=== PATIENT | female | born 1970 | race Caucasian/White ===

== ENCOUNTER 2019-10-10 10:07 | Emergency (ER) | payer MEDICAID, OTHER ==
[~2019-10-10] VITALS: Ht 167.6 cm; Wt 90.9 kg
[~2019-10-10 10:07] MED LIST: CLIN-97 PO; CYCL-1 PO; PROC5TAB56 PO; SUMA25TA35 PO
[2019-10-10 10:13] VITALS: BP 131/86
[2019-10-10] MEDS ORDERED: proparacaine 0.5% ophthalmic drops 15ml RIGHTEYE ONE (10:55)
== END 2019-10-10 12:09 | disposition left against medical advice (07) ==
LOC: ER 10:07
DX: H53.141 Visual discomfort, right eye (principal); Z87.440 Personal history of urinary (tract) infections
CPT/HCPCS: 99282

== ENCOUNTER 2020-05-08 22:41 | Emergency (ER) | payer MEDICAID ==
[~2020-05-08] VITALS: Ht 167.6 cm; Wt 91.4 kg
[2020-05-08 23:04] LABS: CLARITY,URINE CLEAR (Clear); COLOR,URINE STRAW (Yellow); GLUCOSE, URINE NEGATIVE (Neg); KETONES,URINE NEGATIVE (Neg); LEUKOCYTE ESTERASE ,URINE NEGATIVE (Neg); NITRITES, URINE NEGATIVE (Neg); OCCULT BLOOD,URINE NEGATIVE (Neg); PH,URINE 5.5 (4.8-8.0); PROTEIN,URINE NEGATIVE (Neg); URINE HCG NEGATIVE (NEG); UROBILINOGEN,URINE 0.2 E.U/dL (0.2-1.0)
[2020-05-08 23:09] LABS: UA COLLECTION TYPE CLN CATCH MIDSTREAM
[2020-05-08 23:51] LABS: BASOPHILS # (AUTO) 0.1 X10'3 (0-0.2); EOSINOPHILS # (AUTO) 0.1 X10'3 (0-0.9); EOSINOPHILS % (AUTO) 1.1 % (0-6); HEMOGLOBIN 13.5 g/dl (12.0-16.0); LYMPHOCYTES # (AUTO) 1.8 X10'3 (1.1-4.8); LYMPHOCYTES % (AUTO) 20.2 % (21-51); MEAN CORPUSCULAR HEMOGLOBIN 29.2 PG (27.0-31.0); MEAN CORPUSCULAR HGB CONC 33.8 g/dL (33.0-36.5); MEAN CORPUSCULAR VOLUME 86.3 FL (78-98); MEAN PLATELET VOLUME 6.9 FL (7.4-10.4); MONOCYTES # (AUTO) 0.5 X10'3 (0-0.9); MONOCYTES % (AUTO) 5.6 % (2-12); NEUTROPHILS # (AUTO) 6.5 X10'3 (1.8-7.7); NEUTROPHILS % (AUTO) 72.1 % (42-75); PLATELET COUNT 254 X10'3 (140-440); RED BLOOD COUNT 4.64 X10'6 (4.20-5.60); RED CELL DISTRIBUTION WIDTH 13.8 % (11.5-14.5); WHITE BLOOD COUNT 9.1 X10'3 (4.5-11.0)
[2020-05-09 00:01] LABS: ALBUMIN 3.8 G/DL (3.4-5.0); ANION GAP 6 (8-16); BLOOD UREA NITROGEN 21 MG/DL (7-18); BUN/CREATININE RATIO 25.3 (6.6-38.0); CALCIUM 9.6 MG/DL (8.5-10.1); CHLORIDE 104 MMOL/L (99-107); CREATININE 0.83 MG/DL (0.40-0.90); GLUCOSE 116 MG/DL (70-104); POTASSIUM 3.9 MMOL/L (3.5-5.1); SODIUM 138 MMOL/L (135-145); TOTAL CARBON DIOXIDE 28.1 MMOL/L (24-32); eGFR 73 ML/MIN
[2020-05-09 00:24] VITALS: BP 156/75
== END 2020-05-09 00:20 | disposition home or self-care (01) ==
LOC: ER 22:42
DX: R55 Syncope and collapse (principal); R51.9 Headache, unspecified; Z79.899 Other long term (current) drug therapy; Z87.448 Personal history of other diseases of urinary system
CPT/HCPCS: 36415; 80048; 81003; 81025; 85025; 93005; 99284

== ENCOUNTER 2020-08-16 21:33 | Emergency (ER) | payer MEDICAID ==
[~2020-08-16] VITALS: Ht 167.6 cm; Wt 90.0 kg
[2020-08-16 23:50] VITALS: BP 144/89
== END 2020-08-16 23:53 | disposition home or self-care (01) ==
LOC: ER 21:34
DX: K13.70 Unspecified lesions of oral mucosa (principal); R55 Syncope and collapse; F17.200 Nicotine dependence, unspecified, uncomplicated; Z72.89 Other problems related to lifestyle; Z87.440 Personal history of urinary (tract) infections; Z79.2 Long term (current) use of antibiotics; Z79.899 Other long term (current) drug therapy
CPT/HCPCS: 99282

== ENCOUNTER 2020-11-08 11:07 | Emergency (ER) | payer MEDICAID ==
[~2020-11-08] VITALS: Ht 167.6 cm; Wt 89.5 kg
[2020-11-08] MEDS ORDERED: normal saline 1000ML IV soln IVB ONE (13:25)
[2020-11-08] MEDS ORDERED: ketorolac tromethamine 15mg/ml inj. IM ONE (13:25)
[2020-11-08] MEDS ORDERED: methylPREDNISolone sod succ 125mg/2ml vial IV ONE (13:25)
[2020-11-08 13:45] LABS: BASOPHILS % (AUTO) 0.4 % (0-1); EOSINOPHILS # (AUTO) 0.1 X10'3 (0-0.9); EOSINOPHILS % (AUTO) 1.3 % (0-6); HEMATOCRIT 43.6 % (35.0-45.0); HEMOGLOBIN 14.4 g/dl (12.0-16.0); LYMPHOCYTES # (AUTO) 2.1 X10'3 (1.1-4.8); LYMPHOCYTES % (AUTO) 23.5 % (21-51); MEAN CORPUSCULAR HEMOGLOBIN 28.6 PG (27.0-31.0); MEAN CORPUSCULAR VOLUME 86.5 FL (78-98); MEAN PLATELET VOLUME 6.9 FL (7.4-10.4); MONOCYTES # (AUTO) 0.5 X10'3 (0-0.9); NEUTROPHILS % (AUTO) 68.8 % (42-75); PLATELET COUNT 277 X10'3 (140-440); RED BLOOD COUNT 5.04 X10'6 (4.20-5.60); RED CELL DISTRIBUTION WIDTH 13.8 % (11.5-14.5); WHITE BLOOD COUNT 8.8 X10'3 (4.5-11.0)
[2020-11-08 13:56] LABS: D-DIMER 0.46 MG/L FEU (0-0.50)
[2020-11-08 14:09] LABS: ALANINE AMINOTRANSFERASE 44 U/L (12-78); ALBUMIN 3.9 G/DL (3.4-5.0); ALBUMIN/GLOBULIN RATIO 1.1 (1.1-1.5); ALKALINE PHOSPHATASE 84 IU/L (46-116); ANION GAP 5 (8-16); ASPARTATE AMINO TRANSFERASE 18 U/L (10-37); BILIRUBIN,TOTAL 0.1 MG/DL (0.1-1.0); BLOOD UREA NITROGEN 18 MG/DL (7-18); BUN/CREATININE RATIO 22.8 (6.6-38.0); CALCIUM 9.4 MG/DL (8.5-10.1); CHLORIDE 106 MMOL/L (99-107); CREATININE 0.79 MG/DL (0.40-0.90); GLUCOSE 105 MG/DL (70-104); POTASSIUM 4.2 MMOL/L (3.5-5.1); SODIUM 142 MMOL/L (135-145); TOTAL CARBON DIOXIDE 30.6 MMOL/L (24-32); TOTAL PROTEIN 7.4 G/DL (6.4-8.2); eGFR 78 ML/MIN
[2020-11-08 14:57] VITALS: BP 119/82
== END 2020-11-08 15:35 | disposition home or self-care (01) ==
LOC: ER 11:07
DX: R51.9 Headache, unspecified (principal); R20.0 Anesthesia of skin; H53.8 Other visual disturbances; Z72.89 Other problems related to lifestyle; Z98.890 Other specified postprocedural states; Z79.899 Other long term (current) drug therapy
CPT/HCPCS: 36415; 70450; 80053; 85025; 85379; 93005; 96372; 96374; 99285; J1885; J2930; J7030; 96375

== ENCOUNTER 2020-11-24 11:31 | Emergency (ER) | payer MEDICAID ==
[~2020-11-24] VITALS: Ht 167.6 cm; Wt 86.0 kg
[2020-11-24 12:22] LABS: BASOPHILS % (AUTO) 0.5 % (0-1); EOSINOPHILS # (AUTO) 0.1 X10'3 (0-0.9); EOSINOPHILS % (AUTO) 1.1 % (0-6); HEMATOCRIT 42.3 % (35.0-45.0); HEMOGLOBIN 14.4 g/dl (12.0-16.0); LYMPHOCYTES # (AUTO) 1.5 X10'3 (1.1-4.8); LYMPHOCYTES % (AUTO) 17.8 % (21-51); MEAN CORPUSCULAR HEMOGLOBIN 29.2 PG (27.0-31.0); MEAN CORPUSCULAR VOLUME 85.7 FL (78-98); MEAN PLATELET VOLUME 6.8 FL (7.4-10.4); MONOCYTES # (AUTO) 0.6 X10'3 (0-0.9); MONOCYTES % (AUTO) 7.2 % (2-12); NEUTROPHILS # (AUTO) 6.3 X10'3 (1.8-7.7); NEUTROPHILS % (AUTO) 73.4 % (42-75); PLATELET COUNT 267 X10'3 (140-440); RED BLOOD COUNT 4.94 X10'6 (4.20-5.60); RED CELL DISTRIBUTION WIDTH 13.5 % (11.5-14.5); WHITE BLOOD COUNT 8.5 X10'3 (4.5-11.0)
[2020-11-24 12:36] LABS: ALANINE AMINOTRANSFERASE 36 U/L (12-78); ALBUMIN 3.6 G/DL (3.4-5.0); ALBUMIN/GLOBULIN RATIO 0.9 (1.1-1.5); ALKALINE PHOSPHATASE 106 IU/L (46-116); ANION GAP 8 (8-16); ASPARTATE AMINO TRANSFERASE 17 U/L (10-37); BILIRUBIN,TOTAL 0.2 MG/DL (0.1-1.0); BLOOD UREA NITROGEN 15 MG/DL (7-18); CALCIUM 9.1 MG/DL (8.5-10.1); CHLORIDE 105 MMOL/L (99-107); CREATININE 0.75 MG/DL (0.40-0.90); GLUCOSE 109 MG/DL (70-104); LIPASE 78 U/L (73-393); POTASSIUM 3.9 MMOL/L (3.5-5.1); SODIUM 141 MMOL/L (135-145); TOTAL CARBON DIOXIDE 28.1 MMOL/L (24-32); TOTAL PROTEIN 7.5 G/DL (6.4-8.2); eGFR 82 ML/MIN
[2020-11-24] MEDS ORDERED: ketorolac tromethamine 15mg/ml inj. IV ONE (18:20)
[2020-11-24] MEDS ORDERED: ondansetron/PF 4mg/2ml inj IV ONE (18:20)
[2020-11-24] MEDS ORDERED: normal saline 1000ml 1,000 ML IV ONE (18:20)
[2020-11-24] MEDS ORDERED: iohexol 350MG/ML 100ml bottle IV ONE (18:21)
[2020-11-24 18:34] LABS: CLARITY,URINE SLIGHTLY CLOUDY (Clear); COLOR,URINE YELLOW (Yellow); GLUCOSE, URINE NEGATIVE (Neg); KETONES,URINE NEGATIVE (Neg); LEUKOCYTE ESTERASE ,URINE NEGATIVE (Neg); NITRITES, URINE NEGATIVE (Neg); OCCULT BLOOD,URINE TRACE-INTACT (Neg); PH,URINE 5.5 (4.8-8.0); PROTEIN,URINE NEGATIVE (Neg); UROBILINOGEN,URINE 0.2 E.U/dL (0.2-1.0)
[2020-11-24] MEDS ORDERED: iohexol 300mg/ml 100ml inj. ONE (18:34)
[2020-11-24 18:40] LABS: URINE HCG NEGATIVE (NEG)
[2020-11-24 18:42] LABS: BACTERIA,URINE 2+ /HPF (Neg); MUCUS STRANDS MANY /LPF (Neg); RBC,URINE 0-2 /HPF (0-2); RENAL CELLS, URINE FEW /HPF; SQUAMOUS EPITHELIAL CELL,UR MANY /LPF (FEW); TRANSITIONAL EPI CELLS,URINE FEW /HPF; UA COLLECTION TYPE CLN CATCH MIDSTREAM; WBC,URINE 0-4 /HPF (0-4)
[2020-11-24] MEDS ORDERED: CIPR-259 PO (20:14)
[2020-11-24] MEDS ORDERED: ONDA4TAB6 PO (20:14)
[2020-11-24] MEDS ORDERED: METR500T PO (20:14)
[2020-11-24] MEDS ORDERED: HYDR-3964 PO (20:14)
[2020-11-24 20:56] VITALS: BP 106/64
[2020-11-24 22:17] LABS: OCCULT BLOOD STOOL POSITIVE (Neg)
== END 2020-11-24 20:58 | disposition home or self-care (01) ==
LOC: ER 11:31
DX: K57.32 Diverticulitis of large intestine without perforation or abscess without bleeding (principal); Z87.448 Personal history of other diseases of urinary system; Z79.899 Other long term (current) drug therapy
CPT/HCPCS: 36415; 74177; 80053; 81001; 81025; 82272; 83605; 83690; 85025; 96361; 96374; 96375; 99285; J1885; J2405; J7030; Q9967

== ENCOUNTER 2020-11-27 20:53 | Emergency (ER) | payer MEDICAID ==
[~2020-11-27] VITALS: Ht 167.6 cm; Wt 87.3 kg
[~2020-11-27 20:53] MED LIST changes: +CIPR-259 PO; -CLIN-97 PO; -CYCL-1 PO; +HYDR-3964 PO; +METR500T PO; +ONDA4TAB6 PO; -PROC5TAB56 PO; -SUMA25TA35 PO
[2020-11-27] MEDS ORDERED: metoclopramide 5 mg/ml inj IV ONE (22:50)
[2020-11-27] MEDS ORDERED: magnesium citrate 296ml oral solution PO ONE (22:50)
[2020-11-27] MEDS ORDERED: bisacodyl 10mg suppository rectal RC ONE (22:50)
[2020-11-27] MEDS ORDERED: normal saline 1000ML IV soln IVB ONE (22:50)
[2020-11-27 23:16] VITALS: BP 104/69
== END 2020-11-28 01:02 | disposition home or self-care (01) ==
LOC: ER 20:54
DX: K59.00 Constipation, unspecified (principal); E86.0 Dehydration; K57.92 Diverticulitis of intestine, part unspecified, without perforation or abscess without bleeding; F17.200 Nicotine dependence, unspecified, uncomplicated; Z87.440 Personal history of urinary (tract) infections; Z72.89 Other problems related to lifestyle; Z79.2 Long term (current) use of antibiotics; Z98.890 Other specified postprocedural states; Z79.899 Other long term (current) drug therapy
CPT/HCPCS: 74018; 96361; 96374; 99284; J2765; J7030

== ENCOUNTER 2021-02-24 00:34 | Emergency (ER) | payer MEDICAID ==
[~2021-02-24 00:34] MED LIST changes: -CIPR-259 PO; -HYDR-3964 PO; -METR500T PO
== END 2021-02-24 01:30 | disposition left against medical advice (07) ==
LOC: ER 00:34
DX: N64.4 Mastodynia (principal); Z53.21 Procedure and treatment not carried out due to patient leaving prior to being seen by health care provider

== ENCOUNTER 2021-12-28 08:18 | Emergency (ER) | payer MEDICAID ==
[~2021-12-28] VITALS: Ht 167.6 cm; Wt 100.0 kg
[2021-12-28 08:24] VITALS: BP 125/95
--- NOTE | 2021-12-28 08:59 | NUR ---
SOON TRIAGE WAS COMPLETED, PT WENT TO REGISTRATION WINDOW AND STATED THAT SHE ISGOING TO LEAVE HER SYMPTOMS "AREN'T BAD", AND THAT SHE WOULD RETURN SHOULDER THEY WORSEN.
== END 2021-12-28 09:00 | disposition left against medical advice (07) ==
LOC: ER 08:18
DX: R07.89 Other chest pain (principal); Z53.21 Procedure and treatment not carried out due to patient leaving prior to being seen by health care provider

== ENCOUNTER 2022-01-09 21:31 | Emergency (ER) | payer MEDICAID ==
[~2022-01-09] VITALS: Ht 167.6 cm; Wt 100.0 kg
[2022-01-09 22:52] LABS: CLARITY,URINE CLEAR (Clear); GLUCOSE, URINE NEGATIVE (Neg); KETONES,URINE TRACE mg/dl (Neg); LEUKOCYTE ESTERASE ,URINE NEGATIVE (Neg); NITRITES, URINE NEGATIVE (Neg); OCCULT BLOOD,URINE NEGATIVE (Neg); PROTEIN,URINE NEGATIVE (Neg); UROBILINOGEN,URINE 0.2 E.U/dL (0.2-1.0)
[2022-01-09 22:55] LABS: COLOR,URINE AMBER (Yellow); UA COLLECTION TYPE CLN CATCH MIDSTREAM
[2022-01-10] MEDS ORDERED: normal saline 1000ML IV soln IVB ONE (00:55)
[2022-01-10 01:37] LABS: BASOPHILS % (AUTO) 0.3 % (0-1); EOSINOPHILS # (AUTO) 0.1 X10'3 (0-0.9); HEMATOCRIT 40.2 % (35.0-45.0); HEMOGLOBIN 13.5 g/dl (12.0-16.0); LYMPHOCYTES % (AUTO) 23.8 % (21-51); MEAN CORPUSCULAR HEMOGLOBIN 27.9 PG (27.0-31.0); MEAN CORPUSCULAR HGB CONC 33.5 g/dL (33.0-36.5); MEAN PLATELET VOLUME 6.8 FL (7.4-10.4); MONOCYTES # (AUTO) 0.5 X10'3 (0-0.9); MONOCYTES % (AUTO) 6.4 % (2-12); NEUTROPHILS # (AUTO) 5.8 X10'3 (1.8-7.7); NEUTROPHILS % (AUTO) 68.5 % (42-75); PLATELET COUNT 247 X10'3 (140-440); RED BLOOD COUNT 4.84 X10'6 (4.20-5.60); RED CELL DISTRIBUTION WIDTH 13.4 % (11.5-14.5); WHITE BLOOD COUNT 8.4 X10'3 (4.5-11.0)
[2022-01-10 01:53] LABS: ALBUMIN 3.8 G/DL (3.4-5.0); ANION GAP 8 (8-16); BILIRUBIN,TOTAL 0.2 MG/DL (0.1-1.0); BLOOD UREA NITROGEN 23 MG/DL (7-18); CALCIUM 9.4 MG/DL (8.5-10.1); CHLORIDE 107 MMOL/L (99-107); CREATININE 0.82 MG/DL (0.40-0.90); GLUCOSE 118 MG/DL (70-104); POTASSIUM 4.1 MMOL/L (3.5-5.1); SODIUM 142 MMOL/L (135-145); TOTAL CARBON DIOXIDE 27.1 MMOL/L (24-32); TOTAL PROTEIN 7.3 G/DL (6.4-8.2); eGFR 74 ML/MIN
[2022-01-10 01:54] LABS: ALANINE AMINOTRANSFERASE 89 U/L (12-78); ALBUMIN/GLOBULIN RATIO 1.1 (1.1-1.5); ALKALINE PHOSPHATASE 88 IU/L (46-116); ASPARTATE AMINO TRANSFERASE 29 U/L (10-37); LIPASE 82 U/L (73-393)
[2022-01-10 03:18] VITALS: BP 114/72
[2022-01-10] MEDS ORDERED: PANT-47 PO (03:43)
== END 2022-01-10 03:20 | disposition home or self-care (01) ==
LOC: ER 21:31
DX: R10.11 Right upper quadrant pain (principal); R11.10 Vomiting, unspecified; R42 Dizziness and giddiness; E11.9 Type 2 diabetes mellitus without complications; Z79.899 Other long term (current) drug therapy
CPT/HCPCS: 36415; 80053; 81003; 83690; 85025; 96360; 96361; 99283; J7030

== ENCOUNTER 2022-04-29 21:56 | Emergency (ER) | payer MEDICAID ==
[~2022-04-29] VITALS: Ht 167.6 cm; Wt 98.0 kg
[~2022-04-29 21:56] MED LIST changes: +PANT-47 PO
[2022-04-29 22:34] VITALS: BP 125/94
[2022-04-29 23:00] LABS: BASOPHILS % (AUTO) 0.5 % (0-1); EOSINOPHILS # (AUTO) 0.1 X10'3 (0-0.9); EOSINOPHILS % (AUTO) 0.9 % (0-6); HEMATOCRIT 40.8 % (35.0-45.0); HEMOGLOBIN 13.4 g/dl (12.0-16.0); LYMPHOCYTES % (AUTO) 31.7 % (21-51); MEAN CORPUSCULAR HEMOGLOBIN 27.6 PG (27.0-31.0); MEAN CORPUSCULAR HGB CONC 32.9 g/dL (33.0-36.5); MEAN PLATELET VOLUME 6.7 FL (7.4-10.4); MONOCYTES # (AUTO) 0.7 X10'3 (0-0.9); MONOCYTES % (AUTO) 6.9 % (2-12); NEUTROPHILS # (AUTO) 5.7 X10'3 (1.8-7.7); PLATELET COUNT 296 X10'3 (140-440); RED BLOOD COUNT 4.85 X10'6 (4.20-5.60); RED CELL DISTRIBUTION WIDTH 13.8 % (11.5-14.5); WHITE BLOOD COUNT 9.6 X10'3 (4.5-11.0)
[2022-04-29 23:10] LABS: ALANINE AMINOTRANSFERASE 70 U/L (12-78); ALBUMIN/GLOBULIN RATIO 1.2 (1.1-1.5); ALKALINE PHOSPHATASE 93 IU/L (46-116); ANION GAP 8 (8-16); ASPARTATE AMINO TRANSFERASE 25 U/L (10-37); BILIRUBIN,TOTAL 0.2 MG/DL (0.1-1.0); BLOOD UREA NITROGEN 22 MG/DL (7-18); CALCIUM 9.4 MG/DL (8.5-10.1); CHLORIDE 103 MMOL/L (99-107); CREATININE 0.88 MG/DL (0.40-0.90); GLUCOSE 109 MG/DL (70-104); POTASSIUM 3.7 MMOL/L (3.5-5.1); SODIUM 139 MMOL/L (135-145); TOTAL CARBON DIOXIDE 28.5 MMOL/L (24-32); TOTAL PROTEIN 7.3 G/DL (6.4-8.2); eGFR 68 ML/MIN
--- NOTE | 2022-04-30 02:04 | NUR ---
BLOOD SENT TO LAB
== END 2022-04-30 03:04 | disposition home or self-care (01) ==
LOC: ER 21:57
DX: R07.89 Other chest pain (principal); R06.02 Shortness of breath; E11.9 Type 2 diabetes mellitus without complications; Z87.440 Personal history of urinary (tract) infections; Z79.899 Other long term (current) drug therapy
CPT/HCPCS: 36415; 71045; 80053; 84484; 85025; 93005; 99285

== ENCOUNTER 2023-01-13 23:44 | Emergency (ER) | payer MEDICAID ==
[~2023-01-13] VITALS: Ht 167.6 cm; Wt 81.8 kg
[2023-01-13 23:53] VITALS: BP 140/96
== END 2023-01-14 01:20 | disposition left against medical advice (07) ==
LOC: ER 23:45
DX: I10 Essential (primary) hypertension (principal); Z53.21 Procedure and treatment not carried out due to patient leaving prior to being seen by health care provider
CPT/HCPCS: 80053; 83690; 99281

== ENCOUNTER 2023-07-28 08:58 | Emergency (ER) | payer MEDICAID ==
[~2023-07-28] VITALS: Ht 167.6 cm; Wt 83.8 kg
[2023-07-28 09:28] LABS: URINE HCG NEGATIVE (NEG)
[2023-07-28 09:29] LABS: BILIRUBIN,URINE NEGATIVE (Neg); CLARITY,URINE CLOUDY (Clear); COLOR,URINE YELLOW (Yellow); GLUCOSE, URINE NEGATIVE (Neg); KETONES,URINE NEGATIVE (Neg); LEUKOCYTE ESTERASE ,URINE MODERATE (Neg); NITRITES, URINE NEGATIVE (Neg); OCCULT BLOOD,URINE LARGE (Neg); PROTEIN,URINE TRACE mg/dl (Neg); UROBILINOGEN,URINE 0.2 E.U/dL (0.2-1.0)
[2023-07-28 09:37] LABS: UA COLLECTION TYPE CLN CATCH MIDSTREAM
[2023-07-28 09:39] LABS: BACTERIA,URINE 2+ /HPF (Neg); RBC,URINE 50-100 /HPF (0-2); SQUAMOUS EPITHELIAL CELL,UR FEW /LPF (FEW); WBC,URINE TNTC /HPF (0-4)
[2023-07-28 09:41] LABS: BASOPHILS % (AUTO) 0.3 % (0-1); EOSINOPHILS # (AUTO) 0.2 X10'3 (0-0.9); EOSINOPHILS % (AUTO) 1.4 % (0-6); HEMATOCRIT 41.7 % (35.0-45.0); HEMOGLOBIN 13.6 g/dl (12.0-16.0); LYMPHOCYTES # (AUTO) 2.5 X10'3 (1.1-4.8); LYMPHOCYTES % (AUTO) 20.1 % (21-51); MEAN CORPUSCULAR HEMOGLOBIN 28.2 PG (27.0-31.0); MEAN CORPUSCULAR HGB CONC 32.6 g/dL (33.0-36.5); MEAN CORPUSCULAR VOLUME 86.3 FL (78-98); MEAN PLATELET VOLUME 6.9 FL (7.4-10.4); MONOCYTES # (AUTO) 0.9 X10'3 (0-0.9); MONOCYTES % (AUTO) 7.6 % (2-12); NEUTROPHILS # (AUTO) 8.7 X10'3 (1.8-7.7); NEUTROPHILS % (AUTO) 70.6 % (42-75); PLATELET COUNT 289 X10'3 (140-440); RED BLOOD COUNT 4.83 X10'6 (4.20-5.60); RED CELL DISTRIBUTION WIDTH 13.9 % (11.5-14.5); WHITE BLOOD COUNT 12.2 X10'3 (4.5-11.0)
[2023-07-28 09:54] LABS: ALANINE AMINOTRANSFERASE 29 U/L (12-78); ALBUMIN 3.6 G/DL (3.4-5.0); ALBUMIN/GLOBULIN RATIO 0.9 (1.1-1.5); ALKALINE PHOSPHATASE 96 IU/L (46-116); ANION GAP 6 (8-16); ASPARTATE AMINO TRANSFERASE 15 U/L (10-37); BILIRUBIN,TOTAL 0.2 MG/DL (0.1-1.0); BLOOD UREA NITROGEN 19 MG/DL (7-18); BUN/CREATININE RATIO 27.1 (10.0-20.0); CALCIUM 9.1 MG/DL (8.5-10.1); CHLORIDE 102 MMOL/L (99-107); GLUCOSE 91 MG/DL (70-104); LIPASE 31 U/L (16-77); POTASSIUM 3.8 MMOL/L (3.5-5.1); SODIUM 139 MMOL/L (135-145); TOTAL CARBON DIOXIDE 31.5 MMOL/L (24-32); TOTAL PROTEIN 7.6 G/DL (6.4-8.2); eCRCL 89 ML/MIN; eGFR 88 ML/MIN
[2023-07-28] MEDS ORDERED: ketorolac trometh inj. 60 MG/2 ML VIAL IM ONE (10:10)
[2023-07-28] MEDS ORDERED: CefTRIAXone 1000mg IM Kit (w/lidocaine diluent) IM ONE (11:35)
[2023-07-28] MEDS ORDERED: PHEN-716 PO (11:36)
[2023-07-28 12:07] VITALS: BP 120/82; PULSE 89; RESP 18; TEMP 98.1; O2SAT 98
== END 2023-07-28 12:09 | disposition home or self-care (01) ==
LOC: ER 08:59
DX: N39.0 Urinary tract infection, site not specified (principal); E11.9 Type 2 diabetes mellitus without complications; F17.200 Nicotine dependence, unspecified, uncomplicated; Z79.899 Other long term (current) drug therapy
CPT/HCPCS: 36415; 74176; 80053; 81001; 81025; 83690; 85025; 87088; 96372; 99285; J0696; J1885

== ENCOUNTER 2023-11-08 22:33 | Emergency (ER) | payer MEDICAID ==
[~2023-11-08] VITALS: Ht 167.6 cm; Wt 83.8 kg
[~2023-11-08 22:33] MED LIST changes: +PHEN-716 PO
[2023-11-08 23:12] LABS: BILIRUBIN,URINE NEGATIVE (Neg); CLARITY,URINE CLEAR (Clear); COLOR,URINE STRAW (Yellow); GLUCOSE, URINE NEGATIVE (Neg); KETONES,URINE NEGATIVE (Neg); LEUKOCYTE ESTERASE ,URINE NEGATIVE (Neg); NITRITES, URINE NEGATIVE (Neg); OCCULT BLOOD,URINE NEGATIVE (Neg); PROTEIN,URINE NEGATIVE (Neg); UROBILINOGEN,URINE 0.2 E.U/dL (0.2-1.0)
[2023-11-08 23:15] LABS: URINE HCG NEGATIVE (NEG)
[2023-11-08 23:23] LABS: UA COLLECTION TYPE CLN CATCH MIDSTREAM
[2023-11-08 23:42] LABS: BASOPHILS % (AUTO) 0.5 % (0-1); EOSINOPHILS # (AUTO) 0.1 X10'3 (0-0.9); EOSINOPHILS % (AUTO) 1.1 % (0-6); HEMATOCRIT 40.9 % (35.0-45.0); HEMOGLOBIN 13.7 g/dl (12.0-16.0); LYMPHOCYTES # (AUTO) 2.9 X10'3 (1.1-4.8); LYMPHOCYTES % (AUTO) 36.5 % (21-51); MEAN CORPUSCULAR HEMOGLOBIN 28.7 PG (27.0-31.0); MEAN CORPUSCULAR HGB CONC 33.5 g/dL (33.0-36.5); MEAN CORPUSCULAR VOLUME 85.7 FL (78-98); MEAN PLATELET VOLUME 6.5 FL (7.4-10.4); MONOCYTES # (AUTO) 0.5 X10'3 (0-0.9); MONOCYTES % (AUTO) 6.6 % (2-12); NEUTROPHILS # (AUTO) 4.4 X10'3 (1.8-7.7); NEUTROPHILS % (AUTO) 55.3 % (42-75); PLATELET COUNT 290 X10'3 (140-440); RED BLOOD COUNT 4.77 X10'6 (4.20-5.60); RED CELL DISTRIBUTION WIDTH 14.2 % (11.5-14.5); WHITE BLOOD COUNT 7.9 X10'3 (4.5-11.0)
[2023-11-08 23:57] LABS: ALANINE AMINOTRANSFERASE 29 U/L (12-78); ALBUMIN 4.2 G/DL (3.4-5.0); ALBUMIN/GLOBULIN RATIO 1.1 (1.1-1.5); ALKALINE PHOSPHATASE 79 IU/L (46-116); ANION GAP 8 (8-16); ASPARTATE AMINO TRANSFERASE 16 U/L (10-37); BILIRUBIN,TOTAL 0.3 MG/DL (0.1-1.0); BLOOD UREA NITROGEN 16 MG/DL (7-18); BUN/CREATININE RATIO 19.8 (10.0-20.0); CALCIUM 9.4 MG/DL (8.5-10.1); CHLORIDE 105 MMOL/L (99-107); CREATININE 0.81 MG/DL (0.40-0.90); GLUCOSE 113 MG/DL (70-104); LIPASE 23 U/L (16-77); POTASSIUM 3.8 MMOL/L (3.5-5.1); SODIUM 139 MMOL/L (135-145); TOTAL CARBON DIOXIDE 25.8 MMOL/L (24-32); TOTAL PROTEIN 7.9 G/DL (6.4-8.2); eCRCL 77 ML/MIN; eGFR 75 ML/MIN
[2023-11-09] MEDS ORDERED: BISA-78 PO (01:05)
[2023-11-09] MEDS ORDERED: POLY119P2 PO (01:05)
[2023-11-09 01:16] VITALS: BP 116/78; PULSE 59; RESP 18; TEMP 97.9; O2SAT 98
== END 2023-11-09 01:18 | disposition home or self-care (01) ==
LOC: ER 22:33
DX: R10.9 Unspecified abdominal pain (principal); K21.9 Gastro-esophageal reflux disease without esophagitis; E11.9 Type 2 diabetes mellitus without complications
CPT/HCPCS: 36415; 80053; 81003; 81025; 83690; 85025; 99283

== ENCOUNTER 2024-01-24 11:02 | Emergency (ER) | payer MEDICAID, OTHER ==
[~2024-01-24] VITALS: Ht 167.6 cm; Wt 84.6 kg
[~2024-01-24 11:02] MED LIST changes: +BISA-78 PO; +POLY119P2 PO
[2024-01-24 11:30] VITALS: TEMP 98.7
[2024-01-24 11:47] LABS: BASOPHILS % (AUTO) 0.2 % (0-1); EOSINOPHILS # (AUTO) 0.1 X10'3 (0-0.9); EOSINOPHILS % (AUTO) 1.1 % (0-6); HEMATOCRIT 44.9 % (35.0-45.0); HEMOGLOBIN 14.8 g/dl (12.0-16.0); LYMPHOCYTES # (AUTO) 2.1 X10'3 (1.1-4.8); LYMPHOCYTES % (AUTO) 25.1 % (21-51); MEAN CORPUSCULAR HEMOGLOBIN 28.3 PG (27.0-31.0); MEAN CORPUSCULAR VOLUME 85.7 FL (78-98); MONOCYTES # (AUTO) 0.6 X10'3 (0-0.9); NEUTROPHILS # (AUTO) 5.6 X10'3 (1.8-7.7); NEUTROPHILS % (AUTO) 66.6 % (42-75); PLATELET COUNT 354 X10'3 (140-440); RED BLOOD COUNT 5.24 X10'6 (4.20-5.60); RED CELL DISTRIBUTION WIDTH 14.1 % (11.5-14.5); WHITE BLOOD COUNT 8.4 X10'3 (4.5-11.0)
[2024-01-24 11:55] LABS: ALANINE AMINOTRANSFERASE 36 U/L (12-78); ALBUMIN 4.1 G/DL (3.4-5.0); ALBUMIN/GLOBULIN RATIO 1.1 (1.1-1.5); ALKALINE PHOSPHATASE 86 IU/L (46-116); ANION GAP 13 (8-16); ASPARTATE AMINO TRANSFERASE 12 U/L (10-37); BILIRUBIN,TOTAL 0.4 MG/DL (0.1-1.0); BLOOD UREA NITROGEN 20 MG/DL (7-18); BUN/CREATININE RATIO 23.8 (10.0-20.0); CALCIUM 9.7 MG/DL (8.5-10.1); CHLORIDE 105 MMOL/L (99-107); CREATININE 0.84 MG/DL (0.40-0.90); GLUCOSE 138 MG/DL (70-104); LIPASE 35 U/L (16-77); POTASSIUM 3.8 MMOL/L (3.5-5.1); SODIUM 141 MMOL/L (135-145); TOTAL CARBON DIOXIDE 22.6 MMOL/L (24-32); TOTAL PROTEIN 7.9 G/DL (6.4-8.2); eCRCL 74 ML/MIN; eGFR 71 ML/MIN
[2024-01-24 12:13] LABS: URINE HCG NEGATIVE (NEG)
[2024-01-24 12:26] LABS: BILIRUBIN,URINE NEGATIVE (Neg); CLARITY,URINE CLEAR (Clear); COLOR,URINE YELLOW (Yellow); GLUCOSE, URINE NEGATIVE (Neg); KETONES,URINE NEGATIVE (Neg); LEUKOCYTE ESTERASE ,URINE NEGATIVE (Neg); NITRITES, URINE NEGATIVE (Neg); OCCULT BLOOD,URINE NEGATIVE (Neg); PROTEIN,URINE NEGATIVE (Neg); UROBILINOGEN,URINE 0.2 E.U/dL (0.2-1.0)
[2024-01-24 12:33] LABS: UA COLLECTION TYPE CLN CATCH MIDSTREAM
[2024-01-24] MEDS: normal saline 1000ML IV soln IVB ONE (13:32)
[2024-01-24 13:33] LABS: ETHANOL < 10 MG/DL (<10)
[2024-01-24] MEDS: ketorolac trometh. 30mg/ml inj. IV ONE (13:40)
[2024-01-24 15:03] VITALS: PULSE 56; RESP 18; O2SAT 100
[2024-01-24 15:59] VITALS: BP 114/71
== END 2024-01-24 16:01 | disposition home or self-care (01) ==
LOC: ER 11:02
DX: R10.11 Right upper quadrant pain (principal); M54.9 Dorsalgia, unspecified; R51.9 Headache, unspecified; R11.0 Nausea; K21.9 Gastro-esophageal reflux disease without esophagitis; E11.9 Type 2 diabetes mellitus without complications; Z79.899 Other long term (current) drug therapy
CPT/HCPCS: 36415; 76700; 80053; 80320; 81003; 81025; 83690; 85025; 93005; 96374; 99285; J1885; J7030

== ENCOUNTER 2024-02-24 14:43 | Emergency (ER) | payer OTHER ==
[~2024-02-24] VITALS: Ht 167.6 cm; Wt 86.6 kg
[2024-02-24 15:43] LABS: BASOPHILS % (AUTO) 0.5 % (0-1); EOSINOPHILS # (AUTO) 0.1 X10'3 (0-0.9); HEMATOCRIT 42.4 % (35.0-45.0); HEMOGLOBIN 13.8 g/dl (12.0-16.0); LYMPHOCYTES # (AUTO) 2.1 X10'3 (1.1-4.8); LYMPHOCYTES % (AUTO) 29.1 % (21-51); MEAN CORPUSCULAR HEMOGLOBIN 27.9 PG (27.0-31.0); MEAN CORPUSCULAR HGB CONC 32.6 g/dL (33.0-36.5); MEAN CORPUSCULAR VOLUME 85.5 FL (78-98); MEAN PLATELET VOLUME 6.9 FL (7.4-10.4); MONOCYTES # (AUTO) 0.5 X10'3 (0-0.9); MONOCYTES % (AUTO) 7.3 % (2-12); NEUTROPHILS # (AUTO) 4.5 X10'3 (1.8-7.7); NEUTROPHILS % (AUTO) 62.1 % (42-75); PLATELET COUNT 297 X10'3 (140-440); RED BLOOD COUNT 4.96 X10'6 (4.20-5.60); RED CELL DISTRIBUTION WIDTH 14.3 % (11.5-14.5); WHITE BLOOD COUNT 7.3 X10'3 (4.5-11.0)
[2024-02-24 15:44] VITALS: TEMP 98.6
[2024-02-24 15:56] LABS: ALBUMIN 4.5 G/DL (3.4-5.0); ANION GAP 11 (8-16); BLOOD UREA NITROGEN 14 MG/DL (7-18); BUN/CREATININE RATIO 17.7 (10.0-20.0); CALCIUM 9.6 MG/DL (8.5-10.1); CHLORIDE 102 MMOL/L (99-107); CREATININE 0.79 MG/DL (0.40-0.90); GLUCOSE 122 MG/DL (70-104); POTASSIUM 3.9 MMOL/L (3.5-5.1); PRO BRAIN NATRIURETIC PEPTIDE < 30 PG/ML (0-125); SODIUM 140 MMOL/L (135-145); TOTAL CARBON DIOXIDE 27.4 MMOL/L (24-32); eCRCL 79 ML/MIN; eGFR 77 ML/MIN
[2024-02-24] MEDS: dexamethasone 4mg tablet PO ONE (17:59)
[2024-02-24 18:04] VITALS: BP 122/83; PULSE 56; RESP 16; O2SAT 97
== END 2024-02-24 18:06 | disposition home or self-care (01) ==
LOC: ER 14:43
DX: J02.8 Acute pharyngitis due to other specified organisms (principal); K21.9 Gastro-esophageal reflux disease without esophagitis; E11.9 Type 2 diabetes mellitus without complications; Z79.899 Other long term (current) drug therapy
CPT/HCPCS: 36415; 71045; 80048; 83880; 84484; 85025; 93005; 99285

== ENCOUNTER 2024-05-02 19:03 | Emergency (ER) | payer OTHER ==
[~2024-05-02] VITALS: Ht 167.6 cm; Wt 89.8 kg
[2024-05-02 19:20] VITALS: TEMP 97.3
[2024-05-02 20:32] LABS: BASOPHILS % (AUTO) 0.6 % (0-1); EOSINOPHILS # (AUTO) 0.1 X10'3 (0-0.9); EOSINOPHILS % (AUTO) 1.5 % (0-6); HEMATOCRIT 38.6 % (35.0-45.0); HEMOGLOBIN 12.6 g/dl (12.0-16.0); LYMPHOCYTES # (AUTO) 2.8 X10'3 (1.1-4.8); LYMPHOCYTES % (AUTO) 33.7 % (21-51); MEAN CORPUSCULAR HGB CONC 32.7 g/dL (33.0-36.5); MEAN CORPUSCULAR VOLUME 85.6 FL (78-98); MEAN PLATELET VOLUME 6.6 FL (7.4-10.4); MONOCYTES # (AUTO) 0.6 X10'3 (0-0.9); MONOCYTES % (AUTO) 6.8 % (2-12); NEUTROPHILS # (AUTO) 4.7 X10'3 (1.8-7.7); NEUTROPHILS % (AUTO) 57.4 % (42-75); PLATELET COUNT 264 X10'3 (140-440); RED BLOOD COUNT 4.51 X10'6 (4.20-5.60); RED CELL DISTRIBUTION WIDTH 13.8 % (11.5-14.5); WHITE BLOOD COUNT 8.3 X10'3 (4.5-11.0)
[2024-05-02 20:45] LABS: ALANINE AMINOTRANSFERASE 31 U/L (12-78); ALBUMIN/GLOBULIN RATIO 1.4 (1.1-1.5); ALKALINE PHOSPHATASE 71 IU/L (46-116); ANION GAP 9 (8-16); ASPARTATE AMINO TRANSFERASE 19 U/L (10-37); BILIRUBIN,TOTAL 0.2 MG/DL (0.1-1.0); BLOOD UREA NITROGEN 20 MG/DL (7-18); BUN/CREATININE RATIO 19.4 (10.0-20.0); CALCIUM 8.7 MG/DL (8.5-10.1); CHLORIDE 104 MMOL/L (99-107); CREATININE 1.03 MG/DL (0.40-0.90); GLUCOSE 108 MG/DL (70-104); POTASSIUM 3.7 MMOL/L (3.5-5.1); SODIUM 139 MMOL/L (135-145); TOTAL CARBON DIOXIDE 26.5 MMOL/L (24-32); TOTAL PROTEIN 6.8 G/DL (6.4-8.2); eCRCL 60 ML/MIN; eGFR 56 ML/MIN
[2024-05-02 20:53] LABS: PRO BRAIN NATRIURETIC PEPTIDE < 30 PG/ML (0-125)
[2024-05-02 21:56] LABS: BILIRUBIN,URINE NEGATIVE (Neg); CLARITY,URINE CLEAR (Clear); COLOR,URINE YELLOW (Yellow); GLUCOSE, URINE NEGATIVE (Neg); KETONES,URINE NEGATIVE (Neg); LEUKOCYTE ESTERASE ,URINE NEGATIVE (Neg); NITRITES, URINE NEGATIVE (Neg); OCCULT BLOOD,URINE NEGATIVE (Neg); PROTEIN,URINE NEGATIVE (Neg); UROBILINOGEN,URINE 0.2 E.U/dL (0.2-1.0)
[2024-05-02 22:04] LABS: UA COLLECTION TYPE CLN CATCH MIDSTREAM
[2024-05-02 22:11] LABS: URINE AMPHETAMINE SCREEN NEGATIVE (Neg); URINE BARBITUATE SCREEN NEGATIVE (Neg); URINE BENZODIAZEPINES SCREEN NEGATIVE (Neg); URINE CANNABINOID SCREEN NEGATIVE (Neg); URINE COCAINE SCREEN NEGATIVE (Neg); URINE METHADONE SCREEN NEGATIVE (Neg); URINE OPIATE SCREEN NEGATIVE (Neg); URINE PHENCYCLIDINE SCREEN NEGATIVE (Neg)
[2024-05-02 22:50] VITALS: BP 110/75; PULSE 68; RESP 12; O2SAT 96
== END 2024-05-02 22:51 | disposition home or self-care (01) ==
LOC: ER 19:04
DX: R07.89 Other chest pain (principal); M25.512 Pain in left shoulder; E11.9 Type 2 diabetes mellitus without complications; K21.9 Gastro-esophageal reflux disease without esophagitis; Z79.899 Other long term (current) drug therapy; Z87.440 Personal history of urinary (tract) infections
CPT/HCPCS: 36415; 71045; 80053; 80305; 81003; 83880; 84484; 85025; 93005; 99285

== ENCOUNTER 2024-09-15 17:26 | Emergency (ER) | payer MEDICAID ==
[~2024-09-15] VITALS: Ht 167.6 cm; Wt 90.3 kg
[2024-09-15 18:03] LABS: BASOPHILS % (AUTO) 0.5 % (0-1); EOSINOPHILS # (AUTO) 0.1 X10'3 (0-0.9); EOSINOPHILS % (AUTO) 1.6 % (0-6); HEMATOCRIT 41.7 % (35.0-45.0); HEMOGLOBIN 13.7 g/dl (12.0-16.0); LYMPHOCYTES # (AUTO) 2.8 X10'3 (1.1-4.8); LYMPHOCYTES % (AUTO) 35.9 % (21-51); MEAN CORPUSCULAR HEMOGLOBIN 28.2 PG (27.0-31.0); MEAN CORPUSCULAR HGB CONC 32.8 g/dL (33.0-36.5); MEAN CORPUSCULAR VOLUME 85.9 FL (78-98); MEAN PLATELET VOLUME 6.9 FL (7.4-10.4); MONOCYTES # (AUTO) 0.6 X10'3 (0-0.9); MONOCYTES % (AUTO) 7.3 % (2-12); NEUTROPHILS # (AUTO) 4.3 X10'3 (1.8-7.7); NEUTROPHILS % (AUTO) 54.7 % (42-75); PLATELET COUNT 303 X10'3 (140-440); RED BLOOD COUNT 4.85 X10'6 (4.20-5.60); RED CELL DISTRIBUTION WIDTH 14.4 % (11.5-14.5); WHITE BLOOD COUNT 7.8 X10'3 (4.5-11.0)
[2024-09-15 18:12] LABS: ALANINE AMINOTRANSFERASE 38 U/L (12-78); ALBUMIN 4.3 G/DL (3.4-5.0); ALBUMIN/GLOBULIN RATIO 1.2 (1.1-1.5); ALKALINE PHOSPHATASE 85 IU/L (46-116); ANION GAP 6 (8-16); ASPARTATE AMINO TRANSFERASE 15 U/L (10-37); BILIRUBIN,TOTAL 0.2 MG/DL (0.1-1.0); BLOOD UREA NITROGEN 14 MG/DL (7-18); BUN/CREATININE RATIO 20.6 (10.0-20.0); CALCIUM 9.2 MG/DL (8.5-10.1); CHLORIDE 107 MMOL/L (99-107); CREATININE 0.68 MG/DL (0.40-0.90); GLUCOSE 99 MG/DL (70-104); POTASSIUM 3.6 MMOL/L (3.5-5.1); SODIUM 144 MMOL/L (135-145); TOTAL CARBON DIOXIDE 30.9 MMOL/L (24-32); eCRCL 91 ML/MIN; eGFR > 90 ML/MIN
[2024-09-15 18:20] LABS: PRO BRAIN NATRIURETIC PEPTIDE < 30 PG/ML (0-125)
[2024-09-15] MEDS: ketorolac trometh 15mg/ml vial 15 MG/ML ML IM ONE (22:01)
[2024-09-15 22:50] VITALS: BP 128/68; PULSE 76; RESP 16; TEMP 98.1; O2SAT 99
== END 2024-09-15 22:50 | disposition home or self-care (01) ==
LOC: ER 17:27
DX: R07.89 Other chest pain (principal); E11.9 Type 2 diabetes mellitus without complications; K21.9 Gastro-esophageal reflux disease without esophagitis; Z79.899 Other long term (current) drug therapy
CPT/HCPCS: 36415; 71045; 80053; 83880; 84484; 85025; 93005; 96372; 99285; J1885

== ENCOUNTER 2024-09-29 21:52 | Emergency (ER) | payer MEDICAID ==
[~2024-09-29] VITALS: Ht 175.3 cm; Wt 76.0 kg
[2024-09-29] MEDS: diphenhydrAMINE 25mg capsule PO ONE (22:48)
[2024-09-29] MEDS: dexamethasone sod phosphate 10mg/ml inj PO STA (22:49)
[2024-09-30 00:29] VITALS: BP 108/78; PULSE 76; RESP 16; TEMP 98.4; O2SAT 97
== END 2024-09-30 00:31 | disposition home or self-care (01) ==
LOC: ER 21:53
DX: T78.40XA Allergy, unspecified, initial encounter (principal); E11.9 Type 2 diabetes mellitus without complications; K21.9 Gastro-esophageal reflux disease without esophagitis; F17.210 Nicotine dependence, cigarettes, uncomplicated; Y92.89 Other specified places as the place of occurrence of the external cause
CPT/HCPCS: 99283; J1100; Q0163

== ENCOUNTER 2024-11-29 09:48 | Emergency (ER) | payer MEDICAID ==
[~2024-11-29] VITALS: Ht 172.7 cm; Wt 89.4 kg
[2024-11-29 10:31] LABS: BASOPHILS % (AUTO) 0.5 % (0-1); EOSINOPHILS # (AUTO) 0.1 X10'3 (0-0.9); EOSINOPHILS % (AUTO) 1.7 % (0-6); HEMOGLOBIN 14.2 g/dl (12.0-16.0); LYMPHOCYTES # (AUTO) 1.8 X10'3 (1.1-4.8); LYMPHOCYTES % (AUTO) 28.6 % (21-51); MEAN CORPUSCULAR HEMOGLOBIN 27.8 PG (27.0-31.0); MEAN CORPUSCULAR VOLUME 84.1 FL (78-98); MEAN PLATELET VOLUME 6.8 FL (7.4-10.4); MONOCYTES # (AUTO) 0.4 X10'3 (0-0.9); MONOCYTES % (AUTO) 6.2 % (2-12); PLATELET COUNT 316 X10'3 (140-440); RED BLOOD COUNT 5.11 X10'6 (4.20-5.60); WHITE BLOOD COUNT 6.4 X10'3 (4.5-11.0)
[2024-11-29 10:49] LABS: ALANINE AMINOTRANSFERASE 37 U/L (12-78); ALBUMIN 4.2 G/DL (3.4-5.0); ALBUMIN/GLOBULIN RATIO 1.2 (1.1-1.5); ALKALINE PHOSPHATASE 100 IU/L (46-116); ANION GAP 8 (8-16); ASPARTATE AMINO TRANSFERASE 16 U/L (10-37); BILIRUBIN,TOTAL 0.2 MG/DL (0.1-1.0); BLOOD UREA NITROGEN 22 MG/DL (7-18); BUN/CREATININE RATIO 28.9 (10.0-20.0); CALCIUM 9.6 MG/DL (8.5-10.1); CHLORIDE 105 MMOL/L (99-107); CREATININE 0.76 MG/DL (0.40-0.90); GLUCOSE 113 MG/DL (70-104); LIPASE 32 U/L (16-77); SODIUM 140 MMOL/L (135-145); TOTAL CARBON DIOXIDE 26.8 MMOL/L (24-32); TOTAL PROTEIN 7.8 G/DL (6.4-8.2); eCRCL 87 ML/MIN; eGFR 80 ML/MIN
[2024-11-29 11:35] LABS: BILIRUBIN,URINE NEGATIVE (Neg); CLARITY,URINE CLEAR (Clear); COLOR,URINE YELLOW (Yellow); GLUCOSE, URINE NEGATIVE (Neg); KETONES,URINE NEGATIVE (Neg); LEUKOCYTE ESTERASE ,URINE NEGATIVE (Neg); NITRITES, URINE NEGATIVE (Neg); OCCULT BLOOD,URINE NEGATIVE (Neg); PROTEIN,URINE NEGATIVE (Neg); UROBILINOGEN,URINE 0.2 E.U/dL (0.2-1.0)
[2024-11-29 11:38] LABS: URINE HCG NEGATIVE (NEG)
[2024-11-29 11:40] LABS: UA COLLECTION TYPE CLN CATCH MIDSTREAM
[2024-11-29 11:54] VITALS: BP 143/87; PULSE 75; RESP 16; TEMP 97.7; O2SAT 98
--- NOTE | 2024-11-29 12:05 | Physician Documentation ---
History of Present Illness Chief Complaint: Abdominal Pain Stated Complaint: STOMACH PAIN/NAUSEA/HEADACHE X 1 WEEK Time Seen by MD: 11:57 Primary Medical Doctor: SHARON Source: patient, RN/ HPI Patient is seen today with complaints of abdominal discomfort and nausea and vomiting over the last week or so. Patient states her last A1c was 5.1 but states she started taking her metformin again of her own accord and she feels it may be upsetting her stomach. Patient admits to some epigastric abdominal discomfort and states she does take omeprazole. Patient admits to some headaches also for which she does take ibuprofen periodically that does seem to help. Patient has no other concern or complaint at this time. She denies any diarrhea at this time. She denies any chest pain or shortness of breath. Medication Reconciliation Allergies: Coded Allergies: No Known Allergies (Unverified , 09/29/24) Scheduled Bisacodyl (Dulcolax), 4 TAB PO ONCE Ondansetron Hcl (Zofran), 1 TAB PO Q6H Pantoprazole Sodium (PROTONIX tablet), 1 TAB PO DAILY Phenazopyridine HCl (Pyridium), 1 TAB PO Q8H Polyethylene Glycol 3350 (Miralax), 17 GM PO DAILY Past Medical History Past Medical History: Headache, Diverticulitis, Diverticulosis, GERD, *RENAL/*, UTI, Diabetes Past Surgical History: noncontributory Alcohol Use: None Drug Use: none Lives with: S/O Lives In: Home Occupation: employed Review of Systems Constitutional: Denies: chills, fever, weakness Eyes: Denies: pain, blurred vision ENT: Denies: ear pain, nose pain, throat pain, mouth pain Respiratory: Denies: cough, shortness of breath Cardiovascular: Denies: chest pain, palpitations Gastrointestinal: Denies: abdominal pain, nausea, vomiting Genitourinary: Denies: burning, dysuria Female Genitalia: Denies: vaginal discharge, pelvic pain Neurological: Denies: headache, dizziness Musculoskeletal: Denies: pain, swelling Integumentary: Denies: rash, lesions Allergic/Immunologic: Denies: hives, itching Hematologic/Lymphatic: Denies: no symptoms reported Psychiatric: Denies: depression, anxiety Physical Exam Vital Signs: Temperature: 97.7, Source: Temporal, Heart Rate: 75, Respiratory Rate: 16, BP: 143/87, Pulse Oximetry: 98, Weight: 89.400 Oxygen Flow Rate: 0 Physical Exam General: Awake and Alert, no acute distress. HEENT: Conjunctiva pink, Sclera clear, Mucus Membranes moist. Neck: Supple without masses and tenderness. Resp: Unlabored. Lungs clear to auscultation bilaterally. Heart: Regular Rate and rhythm, normal S1 and S2 without murmur, rub or gallop. Abdomen: On exam, the abdomen is soft, nondistended, no guarding, no masses, mild epigastric tenderness to palpation but no other tenderness in any other quadrant. No rebound tenderness. Extremities: No cyanosis,clubbing or edema. Skin: Warm and Dry. Progress Results/Orders Results/Orders Vital Signs 11/29/24 11/29/24 09:53 11:54 Temp 98.2 97.7 Pulse 95 75 Resp 16 16 B/P (MAP) 156/100 143/87 (105) Pulse Ox 98 98 O2 Flow Rate 0 0 Laboratory Tests Test 11/29/24 10:16 11/29/24 11:14 White Blood Count 6.4 Red Blood Count 5.11 Hemoglobin 14.2 Hematocrit 43.0 Mean Corpuscular Volume 84.1 Mean Corpuscular Hemoglobin 27.8 Mean Corpuscular Hemoglobin Concent 33.0 Red Cell Distribution Width 14.0 Platelet Count 316 Mean Platelet Volume 6.8 L Neutrophils (%) (Auto) 63.0 Lymphocytes (%) (Auto) 28.6 Monocytes (%) (Auto) 6.2 Eosinophils (%) (Auto) 1.7 Basophils (%) (Auto) 0.5 Neutrophils # (Auto) 4.0 Lymphocytes # (Auto) 1.8 Monocytes # (Auto) 0.4 Eosinophils # (Auto) 0.1 Basophils # (Auto) 0.0 CBC Comment Sodium Level 140 Potassium Level 4.0 Chloride Level 105 Carbon Dioxide Level 26.8 Anion Gap 8 Blood Urea Nitrogen 22 H Creatinine 0.76 Estimated GFR/1.73 m2 80 BUN/Creatinine Ratio 28.9 H Glucose Level 113 H Calcium Level 9.6 Total Bilirubin 0.2 Aspartate Amino Transf (AST/SGOT) 16 Alanine Aminotransferase (ALT/SGPT) 37 Alkaline Phosphatase 100 Total Protein 7.8 Albumin 4.2 Globulin 3.6 Albumin/Globulin Ratio 1.2 Lipase 32 Chemistry Comments Urine Specimen Description Cln catch midstream Urine Color Yellow Urine Clarity Clear Urine pH 6.0 Urine Specific [place] <=1.005 Urine Protein Negative Urine Glucose (UA) Negative Urine Ketones Negative Urine Occult Blood Negative Urine Nitrite Negative Urine Bilirubin Negative Urine Urobilinogen 0.2 Urine Leukocyte Esterase Negative Urine Culture Indicated Not ind Volume Urine Centrifuged 10 ml Urine HCG, Qualitative Negative Urine Comment Medical Decision Making Findings Patient is seen today with complaints of abdominal discomfort and nausea and vomiting over the last week or so. Patient states her last A1c was 5.1 but states she started taking her metformin again of her own accord and she feels it may be upsetting her stomach. Patient admits to some epigastric abdominal discomfort and states she does take omeprazole. Patient admits to some headaches also for which she does take ibuprofen periodically that does seem to help. Patient has no other concern or complaint at this time. She denies any diarrhea at this time. She denies any chest pain or shortness of breath. Shared decision-making utilized with the patient today. I did review labs with the patient and patient labs are largely unremarkable. Patient advised to stop taking the metformin for the time being and to follow up with her primary care for further eval and follow up on diabetes. Patient voiced understanding. Return to ED with any worsening, concerning or changing symptoms. Continue ibuprofen as needed for headache. Differential Dx:Considerations: Include: Cholelithasis, Constipation, Esophagitis, Gastritis/PUD, Gastroenteritis, Hernia, Inflammatory BD, Ischemic bowel, Urinary tract infection Departure Disposition: HOME / SELF CARE / HOMELESS Impression: Primary Impression: Acute gastritis Qualified Codes: K29.00 - Acute gastritis without bleeding Condition: Stable Discharge Instructions: Abdominal Pain (Nonspecific) Additional Instructions: Shared decision-making utilized with the patient today. I did review labs with the patient and patient labs are largely unremarkable. Patient advised to stop taking the metformin for the time being and to follow up with her primary care for further eval and follow up on diabetes. Patient voiced understanding. Return to ED with any worsening, concerning or changing symptoms. Continue ibuprofen as needed for headache. Referrals: NO PRIMARY CARE PROVIDER (PCP) Signature Scribe Signature: No scribe Attestation: No scribe RADHA MANE November 29, 2024 12:05
== END 2024-11-29 12:32 | disposition home or self-care (01) ==
LOC: ER 09:48
DX: K29.00 Acute gastritis without bleeding (principal); E11.9 Type 2 diabetes mellitus without complications; K21.9 Gastro-esophageal reflux disease without esophagitis; Z79.899 Other long term (current) drug therapy
CPT/HCPCS: 36415; 80053; 81003; 81025; 83690; 85025; 99283

== ENCOUNTER 2024-12-17 17:43 | Emergency (ER) | payer MEDICAID ==
[~2024-12-17] VITALS: Ht 167.6 cm; Wt 90.0 kg
--- NOTE | 2024-12-17 18:01 | ELECTROCARDIOGRAPH REPORT ---
[facility] Test Date: 2024-12-17 Test Time: 17:44:42 Pat Name: YARED AVENDANO Department: EMERGENCY ROOM Room: Gender: F [employer] Marker: BRITTANY : 1970 Requested By: RADHA MANE Order Number: [id number] Reading MD: Measurements Intervals [place] Rate: 62 P: 43 MI: 150 QRS: 3 QRSD: 94 T: 49 QT: 428 QTc: 435 Interpretive Statements Sinus rhythm Please click the below link to view image of tracing.
[2024-12-17 18:26] LABS: BASOPHILS % (AUTO) 0.5 % (0-1); EOSINOPHILS # (AUTO) 0.2 X10'3 (0-0.9); EOSINOPHILS % (AUTO) 2.1 % (0-6); HEMATOCRIT 40.4 % (35.0-45.0); HEMOGLOBIN 13.7 g/dl (12.0-16.0); LYMPHOCYTES # (AUTO) 3.1 X10'3 (1.1-4.8); LYMPHOCYTES % (AUTO) 35.1 % (21-51); MEAN CORPUSCULAR HEMOGLOBIN 28.4 PG (27.0-31.0); MEAN CORPUSCULAR VOLUME 83.5 FL (78-98); MEAN PLATELET VOLUME 6.6 FL (7.4-10.4); MONOCYTES # (AUTO) 0.7 X10'3 (0-0.9); NEUTROPHILS # (AUTO) 4.7 X10'3 (1.8-7.7); NEUTROPHILS % (AUTO) 54.3 % (42-75); PLATELET COUNT 298 X10'3 (140-440); RED BLOOD COUNT 4.84 X10'6 (4.20-5.60); RED CELL DISTRIBUTION WIDTH 13.9 % (11.5-14.5); WHITE BLOOD COUNT 8.7 X10'3 (4.5-11.0)
[2024-12-17 18:36] LABS: ALBUMIN 4.2 G/DL (3.4-5.0); ANION GAP 10 (8-16); BLOOD UREA NITROGEN 16 MG/DL (7-18); BUN/CREATININE RATIO 20.5 (10.0-20.0); CALCIUM 9.6 MG/DL (8.5-10.1); CHLORIDE 105 MMOL/L (99-107); CREATININE 0.78 MG/DL (0.40-0.90); GLUCOSE 95 MG/DL (70-104); POTASSIUM 3.8 MMOL/L (3.5-5.1); PRO BRAIN NATRIURETIC PEPTIDE < 30 PG/ML (0-125); SODIUM 143 MMOL/L (135-145); TOTAL CARBON DIOXIDE 28.5 MMOL/L (24-32); eCRCL 79 ML/MIN; eGFR 78 ML/MIN
--- NOTE | 2024-12-17 18:37 | RADIOLOGY REPORT ---
CHEST RADIOGRAPH Indication: CP Technique: Single frontal view of the chest was obtained COMPARISON: DI CHEST,SINGLE VIEW on DOS: 09/15/24, DI CHEST,SINGLE VIEW on DOS: 05/02/24, DI CHEST,SIN GLE VIEW on DOS: 02/24/24, DI CHEST,SINGLE VIEW on DOS: 09/02/23, CHEST,SINGLE VIEW on DOS: 04/30/22 FINDINGS: Lines and Tubes: None Lungs: Clear Pleura: No effusion. No pneumothorax. Cardiomediastinal contours: Unremarkable Bones: Unremarkable IMPRESSION: No acute disease.
--- NOTE | 2024-12-17 18:39 | Physician Documentation ---
History of Present Illness ~ Chief Complaint: Dizziness Stated Complaint: CP/BLOOD PRESSURE IS OUT OF WHACK Time Seen by MD: 18:26 Primary Medical Doctor: SHARON Source: patient Mode of Arrival: POV Exam Limitations: no limitations HPI Chief Complaint: Dizziness Caveat: None Independent Historians: None History of Present Illness: Patient is a 54-year-old woman who comes in complaining of dizziness that occurred upon awakening this morning. Patient woke up at approximately 6:00 a.m.. Patient describes the dizziness as her head being in a fog. She states the dizziness is not a spinning or vertigo like dizziness. Patient states that she feels better when she is laying down. Patient has been having headaches for two weeks. No headache currently. Patient denies any weakness in one arm or one leg, denies slurred speech, denies visual changes and denies any facial droop. Patient states that her blood pressure today was running high and was as high as 198/128. Patient states that her blood pressure normally runs around 112 systolic and she is not on any medications for hypertension. Patient denies any chest pain. No blood in the urine or blood in the stool. Patient complains of feeling short of breath like she can not get a full deep breath. No pain with deep breaths. No fever, no cough. Review of systems: All systems were reviewed and are negative except for what is indicated in the history of present illness. Past Medical History: None but takes omeprazole for GERD Past Surgical History: None Social History: No tobacco use, no alcohol use, no drug use Medications: Reviewed as documented Nursing Notes Allergies: Reviewed as documented in Nursing Notes Medication Reconciliation Allergies: Coded Allergies: No Known Allergies (Unverified , 09/29/24) Scheduled Bisacodyl (Dulcolax), 4 TAB PO ONCE Ondansetron Hcl (Zofran), 1 TAB PO Q6H Pantoprazole Sodium (PROTONIX tablet), 1 TAB PO DAILY Phenazopyridine HCl (Pyridium), 1 TAB PO Q8H Polyethylene Glycol 3350 (Miralax), 17 GM PO DAILY Past Medical History Past Medical History: Headache, Diverticulitis, Diverticulosis, GERD, *RENAL/*, UTI, Diabetes Past Surgical History: noncontributory Alcohol Use: None Drug Use: none Lives with: S/O Lives In: Home Occupation: employed Review of Systems All Other Systems at this time: Reviewed and Negative ROS Patient denies any other acute symptoms other than above. All other systems are negative Physical Exam Vital Signs: RN Vital Signs have been reviewed: Yes, Temperature: 97.8, Heart Rate: 76, Respiratory Rate: 16, BP: 171/101, Pulse Oximetry: 99, Weight: 90.000 Oxygen Flow Rate: 0 Pulse Oximetry Reflects: adequate oxygenation Physical Exam General Appearance: Mild distress HEENT: Normal OP, moist oral mucosa, PERRL, EOMI Neck: supple, normal ROM, trachea midline Pulmonary: No respiratory distress, CTA, BS equal Cardiac: RRR, no murmur, rub or gallop, GI: nondistended, soft, nontender, normal bowel sounds, no guarding, no rebound Extremities: normal ROM, no swelling, non-tender Skin: intact, dry, warm, no rashes Neuro: AAOx3, speech is clear, no focal motor weakness, cranial nerves 2-12 grossly intact, [id number] intact bilaterally, no pronator drift, equal employment officer, able to lift each leg off the stretcher against gravity Psych: normal affect, good eye contact, no apparent hallucination, normal speech Progress Results/Orders Results/Orders Vital Signs 12/17/24 12/17/24 12/17/24 17:50 18:38 18:43 Temp 97.8 97.8 Pulse 76 59 Resp 16 21 11 B/P (MAP) 171/101 131/78 (95) Pulse Ox 99 97 O2 Flow Rate 0 0 Laboratory Tests Test 12/17/24 18:05 White Blood Count 8.7 Red Blood Count 4.84 Hemoglobin 13.7 Hematocrit 40.4 Mean Corpuscular Volume 83.5 Mean Corpuscular Hemoglobin 28.4 Mean Corpuscular Hemoglobin Concent 34.0 Red Cell Distribution Width 13.9 Platelet Count 298 Mean Platelet Volume 6.6 L Neutrophils (%) (Auto) 54.3 Lymphocytes (%) (Auto) 35.1 Monocytes (%) (Auto) 8.0 Eosinophils (%) (Auto) 2.1 Basophils (%) (Auto) 0.5 Neutrophils # (Auto) 4.7 Lymphocytes # (Auto) 3.1 Monocytes # (Auto) 0.7 Eosinophils # (Auto) 0.2 Basophils # (Auto) 0.0 CBC Comment Sodium Level 143 Potassium Level 3.8 Chloride Level 105 Carbon Dioxide Level 28.5 Anion Gap 10 Blood Urea Nitrogen 16 Creatinine 0.78 Estimated GFR/1.73 m2 78 BUN/Creatinine Ratio 20.5 H Glucose Level 95 Calcium Level 9.6 Troponin I High Sensitivity 4 Pro-B-Type Natriuretic Peptide < 30 Albumin 4.2 Chemistry Comments Medical Decision Making Findings Differential diagnosis includes but is not limited to: Hypertensive emergency, hypertensive urgency, vertigo, benign positional vertigo, labyrinthitis, vestibular neuritis, acute CVA, electrolyte abnormalities EKG independent interpretation: Performed at 5:44 p.m.. Normal sinus rhythm, heart rate 62, normal axis, normal ST segments Chest x-ray, single view, indication: Hypertension Independent interpretation: Lungs are clear, normal mediastinum, normal cardiac silhouette, no acute cardiopulmonary process Laboratory data independent interpretation: CBC: Unremarkable/normal BMP: Normal 1st troponin: 4 ProBNP: <30 Emergency department course/medical decision-making: Patient presents with symptoms that may be secondary to severe hypertension that occurred prior to arrival. Patient's blood pressure has normalized now to 108- 112 systolic. Patient states that she feels better now. She has no complaints at this time. Patient's lab work is unremarkable. There was no clinical evidence to suggest acute coronary syndrome or acute CVA. No evidence for acute end-organ damage. Patient is going to be instructed to follow up [facility] care doctor at [facility] tomorrow for workup of labile hypertension. Patient is instructed to return if her symptoms recur and to monitor blood pressure at home. She is instructed to return if her blood pressure is over 200 systolic or if she becomes symptomatic with blood pressures in the 170s to 200s. Test results and treatment plan above discussed with the patient. Departure Time of Disposition: 19:23 Disposition: 01 HOME / SELF CARE / HOMELESS Impression: Primary Impression: Severe hypertension resolved Additional Impression: Dizziness Condition: Improved Discharge Instructions: Hypertension, Adult, [id number], Dizziness Additional Instructions: YOUR SYMPTOMS MAY HAVE BEEN SECONDARY TO THE VERY HIGH BLOOD PRESSURE. RECOMMEND YOU RETURN TO THE EMERGENCY DEPARTMENT IF YOUR BLOOD PRESSURE IS OVER 200 SYSTOLIC. RECOMMEND YOU RETURN TO THE EMERGENCY DEPARTMENT IF YOU DEVELOP SYMPTOMS WITH HIGH BLOOD PRESSURES FROM 170-200 SYSTOLIC. FOLLOW UP WITH YOUR PRIMARY CARE DOCTOR [facility] TOMORROW. Education Educated: Patient Educated regarding: diagnosis, treatment, need for follow up Signature Scribe Signature: NO SCRIBE Attestation: NO SCRIBE ABBEY YE MD Dec 17, 2024 18:38
[2024-12-17 19:40] VITALS: BP 114/72; PULSE 60; RESP 12; TEMP 97.8; O2SAT 99
== END 2024-12-17 19:42 | disposition home or self-care (01) ==
LOC: ER 17:43
DX: R42 Dizziness and giddiness (principal); R51.9 Headache, unspecified; E11.9 Type 2 diabetes mellitus without complications; K21.9 Gastro-esophageal reflux disease without esophagitis; R06.02 Shortness of breath
CPT/HCPCS: 36415; 71045; 80048; 83880; 84484; 85025; 93005; 99285

== ENCOUNTER 2024-12-19 18:10 | Emergency (ER) | payer MEDICAID ==
[~2024-12-19] VITALS: Ht 168.9 cm; Wt 90.0 kg
[2024-12-19 18:14] VITALS: TEMP 98.1
--- NOTE | 2024-12-19 18:27 | Physician Documentation ---
History of Present Illness Chief Complaint: Vomiting Stated Complaint: N/V Primary Medical Doctor: [facility] Patient presents to the emergency room for evaluation of intermittent nausea and vomiting. She was seen here proximally two weeks ago that has having a week of nausea and vomiting at that time however after she saw so symptoms resolved but returned last night. Her nausea and vomiting waxes and wanes. When she woke up this morning she felt fine then she developed some nausea and then she came to the emergency room and began feeling fine again. She denies any abdominal pain. History of reflux and reports compliance with her omeprazole. Bladder and b owel reported to be normal. Denies chest pain Medication Reconciliation Allergies: Coded Allergies: No Known Allergies (Unverified , 09/29/24) Scheduled Bisacodyl (Dulcolax), 4 TAB PO ONCE Famotidine (Pepcid), 1 TAB PO Q12H Ondansetron 8mg ODT (Ondansetron Odt), 1 TAB PO Q6H Ondansetron Hcl (Zofran), 1 TAB PO Q6H Pantoprazole Sodium (PROTONIX tablet), 1 TAB PO DAILY Phenazopyridine HCl (Pyridium), 1 TAB PO Q8H Polyethylene Glycol 3350 (Miralax), 17 GM PO DAILY Past Medical History Past Medical History: Headache, Diverticulitis, Diverticulosis, GERD, *RENAL/*, UTI, Diabetes Past Surgical History: noncontributory Alcohol Use: None Drug Use: none Lives with: S/O Lives In: Home Occupation: employed Review of Systems ROS All review of systems negative except as per HPI Physical Exam Vital Signs: Temperature: 98.1, Source: Temporal, Heart Rate: 84, Respiratory Rate: 18, BP: 126/83, Pulse Oximetry: 98, Weight: 90.000 Oxygen Flow Rate: 0 Physical Exam General: Patient is awake, alert, oriented x4 in no acute distress and well appearing.~ Head: Normocephalic and atraumatic. Eyes: Conjunctival normal. EOMI. PERRL. ENT: Mucous membranes moist. Neck: Supple, trachea is midline. Chest: Clear to auscultation bilaterally without rales, rhonchi, or wheezes. There is no accessory muscle use or retractions. Cardiac: RRR without murmurs, gallops, or rubs. Abd: Soft, nondistended, nontender, with normoactive bowel sounds. No guarding, rebound, or rigidity. Progress Results/Orders Results/Orders Vital Signs 12/19/24 18:14 Temp 98.1 Pulse 84 Resp 18 B/P (MAP) 126/83 Pulse Ox 98 O2 Flow Rate 0 Medical Decision Making Findings Patient presents to the emergency room for evaluation of intermittent nausea and vomiting as per HPI. Differentials include but are not limited to gastritis, viral syndrome, medication side effect, electrolyte disturbances therefore emergent labs indicated. Labs reassuring for no major pathologic derangements. Possible exacerbation of patient's reflux causing her symptoms and we will treat her as such with ER precautions discussed. Troponin negative and he had not feel her vomiting represents ACS. Departure Disposition: HOME / SELF CARE / HOMELESS Impression: Primary Impression: Vomiting Condition: Stable Discharge Instructions: Nausea and Vomiting, Adult Referrals: NO PRIMARY CARE PROVIDER (PCP) Prescriptions Ondansetron 8mg ODT (Ondansetron Odt) 8 Mg Tab.rapdis 1 TAB PO Q6H for nausea/vomiting for 3 Days, #12 TAB 0 Refills Prov: TAY JONES MD 12/19/24 Famotidine (Pepcid) 20 Mg Tablet 1 TAB PO Q12H, #30 TAB 0 Refills Prov: TAY JONES MD 12/19/24 Education Educated: Patient Educated regarding: diagnosis, treatment, need for follow up Additional Comment Medical Screen Exam History: This 54-year-old female presents with one day of nausea and vomiting without diarrhea, abdominal pain, or fever VITALS: Reviewed and as above. GENERAL: Alert, nontoxic appearing, no apparent distress. RESPIRATORY: No increased work of breathing, no respiratory distress, speaking in full clear sentences MSE performed in triage and patient returned to ED lobby by nursing staff The note accurately reflects work and decisions made by me.JERZY Sullivan 12/19/24 18:27 Signature Scribe Signature: No scribe Attestation: The note accurately reflects work and decisions made by me.Tay Jones MD 12/19/24 22:13 CECILIA RAMOS Dec 19, 2024 18:27 TAY JONES MD Dec 19, 2024 22:08
[2024-12-19 19:14] LABS: BASOPHILS % (AUTO) 0.6 % (0-1); EOSINOPHILS # (AUTO) 0.1 X10'3 (0-0.9); EOSINOPHILS % (AUTO) 1.2 % (0-6); HEMATOCRIT 40.5 % (35.0-45.0); HEMOGLOBIN 13.6 g/dl (12.0-16.0); LYMPHOCYTES # (AUTO) 2.2 X10'3 (1.1-4.8); LYMPHOCYTES % (AUTO) 28.3 % (21-51); MEAN CORPUSCULAR HEMOGLOBIN 28.1 PG (27.0-31.0); MEAN CORPUSCULAR HGB CONC 33.6 g/dL (33.0-36.5); MEAN CORPUSCULAR VOLUME 83.6 FL (78-98); MEAN PLATELET VOLUME 6.7 FL (7.4-10.4); MONOCYTES # (AUTO) 0.5 X10'3 (0-0.9); MONOCYTES % (AUTO) 6.2 % (2-12); NEUTROPHILS # (AUTO) 4.9 X10'3 (1.8-7.7); NEUTROPHILS % (AUTO) 63.7 % (42-75); PLATELET COUNT 297 X10'3 (140-440); RED BLOOD COUNT 4.84 X10'6 (4.20-5.60); RED CELL DISTRIBUTION WIDTH 13.8 % (11.5-14.5); WHITE BLOOD COUNT 7.6 X10'3 (4.5-11.0)
[2024-12-19 19:25] LABS: ALANINE AMINOTRANSFERASE 45 U/L (12-78); ALBUMIN 4.2 G/DL (3.4-5.0); ALBUMIN/GLOBULIN RATIO 1.3 (1.1-1.5); ALKALINE PHOSPHATASE 91 IU/L (46-116); ANION GAP 7 (8-16); ASPARTATE AMINO TRANSFERASE 14 U/L (10-37); BILIRUBIN,TOTAL 0.3 MG/DL (0.1-1.0); BLOOD UREA NITROGEN 14 MG/DL (7-18); BUN/CREATININE RATIO 15.1 (10.0-20.0); CALCIUM 9.4 MG/DL (8.5-10.1); CHLORIDE 107 MMOL/L (99-107); CREATININE 0.93 MG/DL (0.40-0.90); GLUCOSE 117 MG/DL (70-104); LIPASE 25 U/L (16-77); POTASSIUM 3.6 MMOL/L (3.5-5.1); SODIUM 144 MMOL/L (135-145); TOTAL CARBON DIOXIDE 29.7 MMOL/L (24-32); TOTAL PROTEIN 7.5 G/DL (6.4-8.2); eCRCL 68 ML/MIN; eGFR 63 ML/MIN
[2024-12-19 19:28] LABS: BILIRUBIN,URINE NEGATIVE (Neg); CLARITY,URINE CLEAR (Clear); COLOR,URINE YELLOW (Yellow); GLUCOSE, URINE NEGATIVE (Neg); KETONES,URINE NEGATIVE (Neg); LEUKOCYTE ESTERASE ,URINE NEGATIVE (Neg); NITRITES, URINE NEGATIVE (Neg); OCCULT BLOOD,URINE NEGATIVE (Neg); PROTEIN,URINE NEGATIVE (Neg); UROBILINOGEN,URINE 0.2 E.U/dL (0.2-1.0)
[2024-12-19 19:33] LABS: UA COLLECTION TYPE CLN CATCH MIDSTREAM
[2024-12-19 20:55] VITALS: BP 104/71; PULSE 64; RESP 15; O2SAT 98
[2024-12-19] MEDS ORDERED: FAMO-129 PO (22:13)
[2024-12-19] MEDS ORDERED: ONDA-245 PO (22:13)
[2024-12-19] MEDS: famotidine 20mg tablet PO ONE (22:30)
[2024-12-19] MEDS: ondansetron 4mg rapidly disintigrating tab PO ONE (22:30)
== END 2024-12-19 22:34 | disposition home or self-care (01) ==
LOC: ER 18:10
DX: R11.2 Nausea with vomiting, unspecified (principal); E11.9 Type 2 diabetes mellitus without complications; K21.9 Gastro-esophageal reflux disease without esophagitis; Z87.440 Personal history of urinary (tract) infections
CPT/HCPCS: 36415; 80053; 81003; 83690; 84484; 85025; 99283